=== PATIENT | female | born 1995 | race Caucasian/White ===

== ENCOUNTER 2020-05-17 11:40 | Outpatient (REF) | payer OTHER, SELFPAY | END 2020-05-17 11:41 | disposition home or self-care (01) | LOC: HO.LAB 11:40 | PROVIDERS: PCP Family Medicine; Visit Provider Internal Medicine | DX: Z20.828 Contact with and (suspected) exposure to other viral communicable diseases (principal) | CPT/HCPCS: U0003 ==

== ENCOUNTER → 2020-06-14 13:37 | Outpatient (BNVA) | payer OTHER, SELFPAY | PROVIDERS: PCP Family Medicine; Visit Provider Physician Assistant | DX: Z77.21 Contact with and (suspected) exposure to potentially hazardous body fluids (principal) | CPT/HCPCS: 84450; 84460; 86706; 86803; 99203 ==